=== PATIENT | female | born 1970 | race Caucasian/White ===

== ENCOUNTER 2018-03-07 10:51 | Emergency (ER) | payer OTHER, MEDICARE ==
[~2018-03-07] VITALS: Ht 165.1 cm; Wt 63.5 kg
[2018-03-07] MEDS ORDERED: TRAZODONE HCL100 M1 PO (11:07)
[2018-03-07] MEDS ORDERED: HYDROCHLOROTHIA25 M1 PO (11:08)
[2018-03-07] MEDS ORDERED: LISINOPRIL20 M1 PO (11:08)
[2018-03-07] MEDS ORDERED: OXCARBAZEPINE600 M1 PO (11:08)
[2018-03-07] MEDS ORDERED: VENLAFAXINE HCL75 MG PO (11:08)
--- NOTE | 2018-03-07 11:32 | ED AMS/SEIZURE/WEAK/DIZZY ---
History of Present Illness General Chief Complaint: Seizure Stated Complaint: BIBA SEIZURE Source: patient, family Exam Limitations: POOR RECALL Vital Signs & Intake/Output Vital Signs & Intake/Output Vital Signs Date Time Temp Pulse Resp B/P B/P Pulse O2 O2 Flow FiO2 Mean Ox Delivery Rate 03/07 1052 98.4 103 16 134/72 99 Trach Mask Allergies Coded Allergies: No Known Allergies (03/07/18) Reconcile Medications Hydrochlorothiazide 25 MG TABLET 1 TAB PO DAILY WATER RETENTION (Reported) Lisinopril 20 MG TABLET 1 TAB PO DAILY HEART (Reported) Oxcarbazepine 600 MG TABLET 1.5 TAB PO BID UNKNOWN (Reported) Trazodone HCl 100 MG TABLET 1 TAB PO QPM SLEEP (Reported) Venlafaxine HCl 75 MG TABLET 1 TAB PO BID MENTAL HEALTH (Reported) Triage Note: 47 Y/O FEMALE LOUISA FROM HOME FOR EVAL S/P SEIZURE THIS AM. PER EMS, PT HAS HX EPILEPSY AND BEGAN USING MEDICAL MARIJUANA UNDER TONGUE FOR SAME. PER MOTHER (REPORTED TO EMS), PT USED MARIJUANA ONCE AND TODAY'S SEIZURE WAS "WORSE THAN USUAL". EMS STATE PT WAS INITIALLY POSTICTAL HOWEVER ARRIVES TO ED ALERT AND ORIENTED. PT ONLY C/O TONGUE PAIN. WHEN PT LIFTS TONGUE, 2 LARGE FLESH COLORED LUMPS NOTED. PT SPEAKING CLEARLY WITH NO DISTRESS. PRE HOSPITAL IV HEPLOCKED. PRE HOSPITAL FINGERSTICK 124 MD BAUTISTA INTO EVAL. Triage Nurses Notes Reviewed? yes Onset: Abrupt Duration: minute(s): Timing: single episode today Injury Environment: home Severity: severe HPI: Patient presents for evaluation of a grand mal seizure. Patient has a known history of seizures. Patient currently takes oxcarbazine for her seizures and recently began oral marijuana derivative as well. Unfortunately the patient has had multiple seizures this week. History is limited as the patient is currently postictal. Past History Travel History Traveled to [place] past 21 day No Medical History Any Pertinent Medical History? see below for history Neurological: seizure EENT: known sublingual mass Cardiovascular: hypertension Respiratory: NONE Gastrointestinal: NONE Hepatic: NONE Renal: NONE Musculoskeletal: NONE Psychiatric: NONE Endocrine: NONE Blood Disorders: NONE Cancer(s): NONE WOOD SCALER/Reproductive: NONE Surgical History Surgical History: non-contributory Psychosocial History What is your primary language Brazilian Tobacco Use: Never used ETOH Use: denies use Illicit Drug Use: denies illicit drug use Family History Hx Contributory? No Review of Systems Review of Systems Constitutional: Reports: no symptoms. EENTM: Reports: no symptoms. Respiratory: Reports: no symptoms. Cardiovascular: Reports: no symptoms. GI: Reports: no symptoms. Genitourinary: Reports: no symptoms. Musculoskeletal: Reports: no symptoms. Skin: Reports: no symptoms. Neurological/Psychological: Reports: tonic-clonic seizures. Hematologic/Endocrine: Reports: no symptoms. Immunologic/Allergic: Reports: no symptoms. All Other Systems: Reviewed and Negative Physical Exam Physical Exam General Appearance: see below Comments: Gen.: Well-nourished, well-developed, no acute respiratory distress. Head: Normocephalic, atraumatic. Eyes: Normal inspection bilaterally Ears: Normal inspection bilaterally Nose: Normal inspection Throat/mouth : Moist mucosa , mild bilateral tongue abrasions consistent with seizure, dentition stable Neck: Supple, full range of motion, no goiter Heart: Regular rate and rhythm, no murmurs rubs or gallops Lungs: Clear to auscultation bilaterally with normal air entry Chest: Nontender Back: Normal range of motion, mild right parascapular tenderness without signs of trauma Abdomen: Soft, nontender, nondistended, normal bowel sounds Extremities: Normal range of motion grossly, equal radial pulses, no cyanosis clubbing or edema Neurologic: Cranial nerves grossly intact, speech is clear Skin: warm and dry Psychiatric: Calm, cooperative, no apparent delusions or hallucinations Core Measures ACS in differential dx? No CVA/TIA Diagnosis No Sepsis Present: No Sepsis Focused Exam Completed? No Progress Differential Diagnosis: breakthrough seizure, hypoglycemia, electrolyte abnormality, metabolic acidosis, medication noncompliance Plan of Care: Orders Procedure Date/time Status Saline Lock 03/07 1142 Active URINALYSIS 03/07 1142 Active THYROID STIMULATING HORMONE 03/07 1142 Active PHOSPHORUS 03/07 1142 Active MAGNESIUM 03/07 1142 Active COMPREHENSIVE METABOLIC PANEL 03/07 1142 Active CBC WITHOUT DIFFERENTIAL 03/07 1142 Active Laboratory Tests 03/07/18 1153: Sodium Pending, Potassium Pending, Chloride Pending, Carbon Dioxide Pending, Anion Gap Pending, BUN Pending, Creatinine Pending, BUN/Creatinine Ratio Pending , Glucose Pending, Calcium Pending, Phosphorus Pending, Magnesium Pending, Total Bilirubin Pending, AST Pending, ALT Pending, Alkaline Phosphatase Pending, Total Protein Pending, Albumin Pending, Globulin Pending, Albumin/Globulin Ratio Pending, TSH Pending, CBC w Diff Pending, WBC Pending, RBC Pending, Hgb Pending, Hct Pending, MCV Pending, MCH Pending, MCHC Pending, RDW Pending, Plt Count Pending, MPV Pending Initial ED EKG: none Comments: 03/07/2018 11:58:11 AM patient's feels comfortable with taking her home at this point so long as she is stable on her feet. He has been with her for many years and has cared for her during countless numbers of seizures. He will touch base with Dr. Queen regarding follow-up care and possible medication dose adjustments. Departure Departure Disposition: HOME OR SELF CARE Condition: Stable Clinical Impression Primary Impression: Breakthrough seizure Referrals: Dez Queen MD (PCP/Family) Additional Instructions: Follow-up with your neurologist as soon as possible for reevaluation and consideration of medication adjustment. Return if any concerns or sudden worsening. Departure Forms: Customer Survey General Discharge Information
[2018-03-07 12:07] LABS: ABSOLUTE BASOPHIL COUNT 0 /CUMM (0.0-0.2); ABSOLUTE EOSINOPHIL COUNT 0 /CUMM (0.0-0.7); ABSOLUTE LYMPH COUNT 0.8 /CUMM (1.2-3.4); ABSOLUTE MONOCYTE COUNT 0.4 /CUMM (0.10-0.60); BASOPHIL % 0.3 % (0.0-2.0); EOSINOPHIL % 0.9 % (0-5); GRANULOCYTE % 75.1 % (42.2-75.2); HEMATOCRIT 35.2 % (37-47); MEAN CORPUSCULAR HGB 31.3 PG (27.0-31.0); MEAN CORPUSCULAR VOLUME 89.2 FL (81.0-99.0); MEAN PLATELET VOLUME 10.2 FL (7.4-10.4); PLATELET COUNT 192 /CUMM (130-400); RBC DISTRIBUTION WIDTH 12.6 % (11.5-14.5); RED BLOOD CELL CT 3.95 /CUMM (4.20-5.40); WHITE BLOOD CELL COUNT 5.4 /CUMM (4.8-10.8)
[2018-03-07 12:18] VITALS: BP 128/74
== END 2018-03-07 12:19 ==
LOC: ERH 10:51
PROVIDERS: Emergency Medicine
DX: R56.9 Unspecified convulsions (principal); I10 Essential (primary) hypertension
CPT/HCPCS: 81001